=== PATIENT | female | born 1960 | race Two or more races ===

== ENCOUNTER 2023-03-16 09:00 | Emergency (ER) | payer MEDICAID, OTHER ==
[~2023-03-16] VITALS: Ht 172.7 cm; Wt 75.0 kg
[2023-03-16] MEDS ORDERED: SODIUM CHLORIDE 0.9% 1,000 ML IV ONE (09:45)
[2023-03-16] MEDS ORDERED: DIPHENHYDRAMINE 50MG/ML VIAL IV ONE (09:45)
[2023-03-16] MEDS ORDERED: MECLIZINE 25MG TABLET PO ONE (09:45)
[2023-03-16] MEDS ORDERED: METOCLOPRAMIDE HCL 10MG/2ML VIAL IV ONE (09:45)
[2023-03-16] MEDS ORDERED: KETOROLAC 15MG/ML VIAL IV ONE (09:45)
[2023-03-16] MEDS ORDERED: MECL-159 MT (12:05)
[2023-03-16 12:15] VITALS: BP 130/74
== END 2023-03-16 12:15 | disposition home or self-care (01) ==
LOC: ER 09:00
DX: R51.9 Headache, unspecified (principal); R42 Dizziness and giddiness; H92.03 Otalgia, bilateral
CPT/HCPCS: 70450; 96374; 96375; 99285; J1200; J1885; J2765; J7030; J8597

== ENCOUNTER 2024-04-18 14:50 | Emergency (ER) | payer MEDICAID, OTHER ==
[~2024-04-18] VITALS: Ht 172.7 cm; Wt 65.0 kg
[~2024-04-18 14:50] MED LIST: MECL-299 MT
[2024-04-18 15:09] VITALS: BP 143/87; PULSE 80; RESP 16; TEMP 98.6; O2SAT 96
[2024-04-18 16:12] LABS: BASOPHILS % 0.9 % (0.0-2.0); EOSINOPHILS % 1.7 % (0.0-5.0); HEMATOCRIT. 43.1 % (36.0-48.0); HEMOGLOBIN. 14.7 g/dL (12.0-16.0); LYMPHOCYTES % 35.1 % (20.0-50.0); MEAN CORPUSCULAR HEMOGLOBIN 32.3 pg (28.0-32.0); MEAN CORPUSCULAR VOLUME 94.9 fL (81.0-99.0); MEAN PLATELET VOLUME 7.2 fl (7.4-10.4); MONOCYTES % 9.3 % (2.0-8.0); PLATELET 252 x1000/uL (130-400); RED BLOOD CELL COUNT 4.55 mill/uL (4.2-5.4); RED CELL DISTRIBUTION WIDTH 14.2 % (11.6-14.6); WHITE BLOOD COUNT 9.3 x1000/uL (4.5-11.0)
[2024-04-18 16:18] LABS: CHLORIDE 103 mEq/L (98-107); POTASSIUM 3.8 mEq/L (3.5-5.1); SODIUM 136 mEq/L (136-145)
[2024-04-18 16:19] LABS: CARBON DIOXIDE 28 mEq/L (21-32)
[2024-04-18 16:24] LABS: CREATININE 0.8 mg/dL (0.6-1.0); GLUCOSE 113 mg/dL (70-105); UREA NITROGEN BLOOD 9 mg/dL (9-23)
[2024-04-18 16:26] LABS: ALANINE AMINOTRANSFERASE 14 IU/L (10-49); ASPARTATE AMINOTRANSFERASE 19 IU/L (<34); BILIRUBIN TOTAL 0.3 mg/dL (0.1-1.0); PROTEIN TOTAL 6.6 g/dL (6.0-8.3)
[2024-04-18 16:35] LABS: CLARITY URINE CLEAR (CLEAR); COLOR URINE YELLOW (YELLOW); GLUCOSE URINE NEGATIVE (NEGATIVE); KETONES URINE NEGATIVE (NEGATIVE); LEUKOCYTE ESTERASE URINE NEGATIVE (NEGATIVE); NITRITE URINE POSITIVE (NEGATIVE); OCCULT BLOOD URINE NEGATIVE (NEGATIVE); PROTEIN URINE NEGATIVE (NEGATIVE); SPECIFIC GRAVITY URINE 1.022 (1.005-1.030)
[2024-04-18 16:55] LABS: BACTERIA URINE 3+; RBC URINE 0-2 /hpf (0-2); SQUAMOUS EPITHELIAL CELL URINE FEW /lpf (RARE/1+)
[2024-04-18 16:56] LABS: WBC URINE 0-2 /hpf (0-2)
[2024-04-18 17:14] LABS: BILIRUBIN DIRECT < 0.1 mg/dL (<=3.0)
[2024-04-18 17:15] LABS: TROPONIN I HIGH SENSITIVITY < 4 ng/L (3.0-34)
[2024-04-18] MEDS: ACETAMINOPHEN 325MG TABLET PO ONE (18:18)
[2024-04-18] MEDS: ONDANSETRON 4MG ODT PO ONE (18:19)
[2024-04-18] MEDS ORDERED: POLY17PO3 MT (20:24)
== END 2024-04-18 20:31 | disposition home or self-care (01) ==
LOC: ER 14:50
DX: R10.31 Right lower quadrant pain (principal); R10.32 Left lower quadrant pain; K59.00 Constipation, unspecified
CPT/HCPCS: 99284; 74176; 80076; 80048; 81003; 85025; 84484; 36415; 93005; Q0162

== ENCOUNTER 2024-10-26 15:43 | Emergency (ER) | payer MEDICAID, OTHER ==
[~2024-10-26] VITALS: Ht 167.6 cm; Wt 91.0 kg
[~2024-10-26 15:43] MED LIST changes: +POLY17PO3 MT
[2024-10-26 15:57] VITALS: TEMP 98.2; O2SAT 98
[2024-10-26] MEDS ORDERED: NAPR-1164 MT (19:00)
[2024-10-26 19:52] VITALS: BP 134/89; PULSE 62; RESP 19; O2SAT 100
== END 2024-10-26 19:53 | disposition home or self-care (01) ==
LOC: ER 15:43
DX: H61.22 Impacted cerumen, left ear (principal)
CPT/HCPCS: 99282

== ENCOUNTER 2024-10-30 09:55 | Emergency (ER) | payer OTHER ==
[~2024-10-30] VITALS: Ht 170.2 cm; Wt 68.0 kg
[~2024-10-30 09:55] MED LIST changes: +NAPR-1164 MT
[2024-10-30 10:05] VITALS: O2SAT 99
[2024-10-30 10:07] VITALS: TEMP 98; O2SAT 99
[2024-10-30] MEDS ORDERED: AMOX1TAB16 MT (10:29)
[2024-10-30] MEDS ORDERED: ONDA-241 MT (10:29)
[2024-10-30 10:59] VITALS: BP 113/69; PULSE 63; RESP 16
[2024-10-30] MEDS: HYDROCODONE/ACETAMINOPHEN 5/325MG TABLET PO ONE (10:59)
[2024-10-30] MEDS: ONDANSETRON 4MG ODT PO ONE (10:59)
[2024-10-30] MEDS: AMOXICILLIN/POTASSIUM CLAVULANATE 875/125MG TAB PO ONE (10:59)
== END 2024-10-30 11:04 | disposition home or self-care (01) ==
LOC: ER 09:55
DX: H66.92 Otitis media, unspecified, left ear (principal); R11.0 Nausea
CPT/HCPCS: 99284; Q0162

== ENCOUNTER 2024-11-18 14:19 | Emergency (ER) | payer MEDICAID, OTHER ==
[~2024-11-18] VITALS: Ht 167.6 cm; Wt 81.0 kg
[~2024-11-18 14:19] MED LIST changes: +AMOX1TAB16 MT; +ONDA-241 MT
[2024-11-18 14:29] VITALS: O2SAT 97
[2024-11-18 14:31] VITALS: TEMP 37.28076; O2SAT 97
[2024-11-18 17:22] LABS: BASOPHILS % 1.1 % (0.0-2.0); EOSINOPHILS % 1.8 % (0.0-5.0); HEMATOCRIT. 44.1 % (36.0-48.0); HEMOGLOBIN. 14.7 g/dL (12.0-16.0); LYMPHOCYTES % 41.3 % (20.0-50.0); MEAN CORPUSCULAR HEMOGLOBIN 31.7 pg (28.0-32.0); MEAN CORPUSCULAR HGB CONC 33.4 g/dL (31.0-37.0); MEAN CORPUSCULAR VOLUME 94.9 fL (81.0-99.0); MEAN PLATELET VOLUME 7.8 fl (7.4-10.4); MONOCYTES % 8.2 % (2.0-8.0); NEUTROPHILS % 47.6 % (40.0-76.0); PLATELET 224 x1000/uL (130-400); RED BLOOD CELL COUNT 4.64 mill/uL (4.2-5.4); RED CELL DISTRIBUTION WIDTH 14.3 % (11.6-14.6); WHITE BLOOD COUNT 7.8 x1000/uL (4.5-11.0)
[2024-11-18 17:26] LABS: CHLORIDE 105 mEq/L (98-107); POTASSIUM 3.6 mEq/L (3.5-5.1); SODIUM 140 mEq/L (136-145)
[2024-11-18 17:27] LABS: CALCIUM 9.6 mg/dL (8.7-10.4); CARBON DIOXIDE 27 mEq/L (21-32)
[2024-11-18 17:32] LABS: CREATININE 0.8 mg/dL (0.6-1.0); GLUCOSE 94 mg/dL (70-105); UREA NITROGEN BLOOD 9 mg/dL (9-23)
[2024-11-18 17:34] LABS: ALANINE AMINOTRANSFERASE 10 IU/L (10-49); ALBUMIN 4.4 g/dL (3.2-4.8); ASPARTATE AMINOTRANSFERASE 21 IU/L (<34); BILIRUBIN DIRECT 0.1 mg/dL (<=3.0); BILIRUBIN TOTAL 0.5 mg/dL (0.1-1.0); PROTEIN TOTAL 6.8 g/dL (6.0-8.3)
[2024-11-18] MEDS ORDERED: IBUPROFEN 800MG TABLET PO ONE (18:00)
[2024-11-18 18:21] VITALS: BP 114/78; PULSE 67; RESP 18
[2024-11-18] MEDS: IBUPROFEN 800MG TABLET PO NR (18:21)
[2024-11-18] MEDS ORDERED: OFLO5DRO4 LEFT EAR (18:40)
[2024-11-18] MEDS ORDERED: IBUP-2030 MT (18:41)
== END 2024-11-18 18:49 | disposition home or self-care (01) ==
LOC: ER 14:19
DX: H92.02 Otalgia, left ear (principal); R51.9 Headache, unspecified; Z79.899 Other long term (current) drug therapy
CPT/HCPCS: 36415; 80048; 80076; 85025; 99284

== ENCOUNTER 2024-12-24 13:22 | Emergency (ER) | payer MEDICAID ==
[~2024-12-24] VITALS: Ht 172.7 cm; Wt 64.0 kg
[~2024-12-24 13:22] MED LIST changes: +IBUP-2030 MT; +OFLO5DRO4 LEFT EAR
[2024-12-24 13:44] VITALS: BP 126/82; RESP 16; TEMP 98.6; O2SAT 100
[2024-12-24 13:48] VITALS: PULSE 99; O2SAT 96
[2024-12-24 15:23] LABS: EOSINOPHILS % 1.6 % (0.0-5.0); HEMATOCRIT. 43.5 % (36.0-48.0); HEMOGLOBIN. 14.7 g/dL (12.0-16.0); LYMPHOCYTES % 34.4 % (20.0-50.0); MEAN CORPUSCULAR HGB CONC 33.8 g/dL (31.0-37.0); MEAN CORPUSCULAR VOLUME 94.7 fL (81.0-99.0); MEAN PLATELET VOLUME 7.2 fl (7.4-10.4); PLATELET 250 x1000/uL (130-400); RED CELL DISTRIBUTION WIDTH 13.6 % (11.6-14.6); WHITE BLOOD COUNT 8.6 x1000/uL (4.5-11.0)
[2024-12-24 15:28] LABS: CHLORIDE 107 mEq/L (98-107); POTASSIUM 4.1 mEq/L (3.5-5.1); SODIUM 139 mEq/L (136-145)
[2024-12-24 15:29] LABS: CARBON DIOXIDE 29 mEq/L (21-32)
[2024-12-24 15:34] LABS: CREATININE 0.8 mg/dL (0.6-1.0); GLUCOSE 101 mg/dL (70-105); UREA NITROGEN BLOOD 15 mg/dL (9-23)
== END 2024-12-24 20:03 | disposition left against medical advice (07) ==
LOC: ER 13:22
DX: G89.29 Other chronic pain (principal); M79.605 Pain in left leg; M79.604 Pain in right leg; M81.0 Age-related osteoporosis without current pathological fracture
CPT/HCPCS: 36415; 80048; 85025; 99283

== ENCOUNTER 2025-04-18 11:38 | Emergency (ER) | payer MEDICAID ==
[~2025-04-18] VITALS: Ht 167.6 cm; Wt 75.0 kg
[2025-04-18 12:03] VITALS: O2SAT 99
[2025-04-18 14:21] LABS: BASOPHILS % 1.1 % (0.0-2.0); EOSINOPHILS % 1.1 % (0.0-5.0); HEMATOCRIT. 44.3 % (36.0-48.0); HEMOGLOBIN. 14.8 g/dL (12.0-16.0); LYMPHOCYTES % 38.9 % (20.0-50.0); MEAN CORPUSCULAR HEMOGLOBIN 31.5 pg (28.0-32.0); MEAN CORPUSCULAR HGB CONC 33.5 g/dL (31.0-37.0); MONOCYTES % 7.2 % (2.0-8.0); NEUTROPHILS % 51.7 % (40.0-76.0); PLATELET 221 x1000/uL (130-400); RED BLOOD CELL COUNT 4.72 mill/uL (4.2-5.4); RED CELL DISTRIBUTION WIDTH 14.1 % (11.6-14.6); WHITE BLOOD COUNT 7.6 x1000/uL (4.5-11.0)
[2025-04-18 14:32] LABS: CHLORIDE 103 mEq/L (98-107); POTASSIUM 3.7 mEq/L (3.5-5.1); SODIUM 141 mEq/L (136-145)
[2025-04-18 14:33] LABS: CALCIUM 9.3 mg/dL (8.7-10.4); CARBON DIOXIDE 29 mEq/L (21-32)
[2025-04-18 14:38] LABS: CREATININE 0.7 mg/dL (0.6-1.0); GLUCOSE 97 mg/dL (70-105); UREA NITROGEN BLOOD 7 mg/dL (9-23)
[2025-04-18 14:40] LABS: CREATINE KINASE 145 IU/L (34-145); PHOSPHORUS 2.7 mg/dL (2.5-4.9)
[2025-04-18 16:12] LABS: CLARITY URINE CLEAR (CLEAR); GLUCOSE URINE NEGATIVE (NEGATIVE); KETONES URINE NEGATIVE (NEGATIVE); LEUKOCYTE ESTERASE URINE 1+ (NEGATIVE); NITRITE URINE NEGATIVE (NEGATIVE); OCCULT BLOOD URINE NEGATIVE (NEGATIVE); PROTEIN URINE NEGATIVE (NEGATIVE); SPECIFIC GRAVITY URINE 1.004 (1.005-1.030); UROBILINOGEN URINE 0.2 E.U./dL (0.2-1.0)
[2025-04-18 16:27] LABS: COLOR URINE STRAW (YELLOW)
[2025-04-18 16:28] LABS: RBC URINE NONE SEEN /hpf (0-2); WBC URINE 0-2 /hpf (0-2)
[2025-04-18 16:29] LABS: BACTERIA URINE TRACE; SQUAMOUS EPITHELIAL CELL URINE NONE SEEN /lpf (RARE/1+)
[2025-04-18] MEDS ORDERED: IBUP-2029 MT (17:25)
[2025-04-18 17:40] VITALS: BP 115/80; PULSE 80; RESP 16; TEMP 36.8; O2SAT 99
== END 2025-04-18 17:54 | disposition home or self-care (01) ==
LOC: ER 11:38
DX: M79.604 Pain in right leg (principal); M79.605 Pain in left leg; Z79.899 Other long term (current) drug therapy
CPT/HCPCS: 36415; 80048; 81003; 82550; 83735; 84100; 85025; 93970; 99284